=== PATIENT | male | born 1955 | race African-American/Black ===

== ENCOUNTER 2016-07-15 11:54 | Emergency (ER) | payer BC, OTHER ==
[~2016-07-15] VITALS: Ht 182.9 cm; Wt 117.0 kg
[2016-07-15] MEDS ORDERED: TYLENOL WITH C1 EACH PO (13:57)
[2016-07-15] MEDS ORDERED: MOTRIN800 MG PO (13:57)
[2016-07-15 14:14] VITALS: BP 133/77
== END 2016-07-15 14:20 | disposition home or self-care (01) ==
LOC: EXP 11:54 → EME 11:54 → EXP 14:20
DX: M79.672 Pain in left foot (principal); E11.9 Type 2 diabetes mellitus without complications
CPT/HCPCS: 99281; 99283; J1885

== ENCOUNTER 2017-02-25 10:10 | Emergency (ER) | payer BC, OTHER ==
[~2017-02-25] VITALS: Ht 182.9 cm; Wt 115.0 kg
[~2017-02-25 10:10] MED LIST: MOTRIN800 MG PO; TYLENOL WITH C1 EACH PO
[2017-02-25 10:53] LABS: HEMATOCRIT 40.9 % (38.0-50.0); MCH 24.8 PG (29.0-34.0); MCHC 32.3 G/DL (30.0-36.0); MCV 76.7 FL (86-99); PLATELET COUNT 200 K/uL (156-360); RBC DIS.WIDTH-CV 15.9 % (11.8-14.6); RED BLOOD COUNT 5.33 M/uL (4.00-5.50); WHITE BLOOD COUNT 9.3 K/uL (4.1-10.2)
[2017-02-25 11:02] LABS: CHLORIDE 101 mEq/L (99-109); POTASSIUM 4.3 mEq/L (3.7-5.4); SODIUM 138 mEq/L (136-147)
[2017-02-25 11:04] LABS: GLUCOSE 194 mg/dL (70-99)
[2017-02-25 11:05] LABS: ANION GAP 10 MEQ/L (2-14)
[2017-02-25 11:08] LABS: GFR ESTIMATE (CALCULATED) > 59 mL/min/
[2017-02-25 11:09] LABS: UREA NITROGEN (BUN) 21 mg/dL (9-23)
[2017-02-25 11:13] LABS: TROP-I INTERPRETATION NEGATIVE; TROPONIN-I < 0.01 ng/mL (0.0-0.30)
[2017-02-25 15:03] VITALS: BP 110/68
== END 2017-02-25 15:04 | disposition home or self-care (01) ==
LOC: EME 10:10
DX: R07.89 Other chest pain (principal); I10 Essential (primary) hypertension
CPT/HCPCS: 71020; 80048; 84484; 85027; 93005; 99281; 99285

== ENCOUNTER 2017-12-19 02:52 | Emergency (ER) | payer BC, OTHER ==
[~2017-12-19] VITALS: Ht 182.9 cm; Wt 112.3 kg
[2017-12-19 03:39] LABS: HEMATOCRIT 39.6 % (38.0-50.0); HEMOGLOBIN 13.3 G/DL (12.5-16.6); MCH 25.7 PG (29.0-34.0); MCHC 33.6 G/DL (30.0-36.0); MCV 76.4 FL (86-99); RBC DIS.WIDTH-CV 15.1 % (11.8-14.6); RBC DIS.WIDTH-SD 41.6 % (39-53); RED BLOOD COUNT 5.18 M/uL (4.00-5.50); WHITE BLOOD COUNT 13.4 K/uL (4.1-10.2)
[2017-12-19 03:56] LABS: INTER. NORMALIZED RATIO 1.1
[2017-12-19 03:59] LABS: ALBUMIN 3.9 g/dL (3.2-4.8)
[2017-12-19 04:00] LABS: CHLORIDE 98 mEq/L (99-109); POTASSIUM 3.7 mEq/L (3.7-5.4); SODIUM 138 mEq/L (136-147)
[2017-12-19 04:02] LABS: GLUCOSE 216 mg/dL (70-99)
[2017-12-19 04:04] LABS: TOTAL BILIRUBIN 0.6 mg/dL (0.0-1.0)
[2017-12-19 04:05] LABS: ALKALINE PHOSPHATASE 57 IU/L (3-129)
[2017-12-19 04:06] LABS: CREATININE 1.3 mg/dL (0.6-1.3); GFR ESTIMATE (CALCULATED) > 59 mL/min/ (58.99-99999)
[2017-12-19 04:07] LABS: AST (GOT) 25 IU/L (2-34); UREA NITROGEN (BUN) 11 mg/dL (9-23)
[2017-12-19 04:09] LABS: ALT (GPT) 20 IU/L (3-49)
[2017-12-19 05:17] LABS: APPEARANCE CLEAR ((CLEAR)); BILIRUBIN NEGATIVE; BLOOD MODERATE; COLOR YELLOW ((YELLOW)); GLUCOSE (STRIP) 150; KETONES NEGATIVE; LEUKOCYTES NEGATIVE; NITRITE NEGATIVE; PROTEIN (STRIP) 100; UROBILINOGEN 0.2 MG/DL (0.2-1.0)
[2017-12-19 05:18] LABS: BACTERIA NONE SEEN /HPF; EPITHELIAL CELLS NONE SEEN /HPF; MUCUS TRACE /LPF; UCUL ADDED? NO; WHITE BLOOD CELLS 0-5 /HPF (0-5)
[2017-12-19] MEDS ORDERED: ANTIVERT25 MG PO (05:19)
[2017-12-19] MEDS ORDERED: ZOFRAN ODT4 MG PO (05:19)
[2017-12-19 05:23] LABS: PLATELET CLUMPS PRESENT - PLATELET COUNT APPEARS ADQ.; PLATELET COUNT UNABLE TO REPORT K/uL (156-360)
[2017-12-19 05:35] VITALS: BP 123/70
== END 2017-12-19 05:36 | disposition home or self-care (01) ==
LOC: EME 02:52
PROVIDERS: Physician Assistant
DX: H81.10 Benign paroxysmal vertigo, unspecified ear (principal); R11.2 Nausea with vomiting, unspecified
CPT/HCPCS: 70450; 80053; 81003; 85027; 85610; 93005; 99281; 99285; J1200; J2405; J7030